=== PATIENT | female | born 2005 | race Caucasian/White ===

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

== ENCOUNTER 2023-08-08 19:35 | Emergency (ER) | payer BC ==
[~2023-08-08] VITALS: Ht 167.6 cm; Wt 70.3 kg
[~2023-08-08 19:35] MED LIST changes: +BENZ100A PO
[2023-08-08 19:43] VITALS: BP 143/97
[2023-08-08] MEDS ORDERED: ONDA4ODT MM (22:38)
== END 2023-08-08 22:15 | disposition home or self-care (01) ==
LOC: ER 19:35
DX: S06.0X0A Concussion without loss of consciousness, initial encounter (principal); W20.8XXA Other cause of strike by thrown, projected or falling object, initial encounter; Y92.009 Unspecified place in unspecified non-institutional (private) residence as the place of occurrence of the external cause
CPT/HCPCS: 99283; A9270

== ENCOUNTER 2023-11-18 04:13 | Observation (INO) | payer BC ==
[~2023-11-18] VITALS: Ht 170.2 cm; Wt 63.5 kg
[~2023-11-18 04:13] MED LIST changes: +ONDA4ODT MM
[2023-11-18 05:02] LABS: BASOPHILS ABSOLUTE AUTO 0.06 K/mm3 (0.00-0.23); BASOPHILS PERCENT AUTO 1 % (0-2); EOSINOPHILS PERCENT AUTO 6 % (0-6); Hematocrit 39.3 % (33.0-51.0); Hemoglobin 13.4 g/dL (11.5-16.0); IMMATURE GRAN ABSOLUTE AUTO 0.02 K/mm3 (0.00-0.10); IMMATURE GRAN PERCENT AUTO 0 % (0-1); LYMPHOCYTES PERCENT AUTO 36 % (21-46); MONOCYTES ABSOLUTE AUTO 0.56 K/mm3 (0.16-1.47); MONOCYTES PERCENT AUTO 8 % (4-13); Mean Corpuscular HGB 31.2 pg (26.0-34.0); Mean Corpuscular HGB Conc 34.1 g/dL (31.5-36.5); Mean Corpuscular Volume 92 fL (80-100); Mean Platelet Volume 9.3 fL (9.1-12.4); NEUTROPHILS ABSOLUTE AUTO 3.33 K/mm3 (1.96-9.15); NEUTROPHILS PERCENT AUTO 49 % (41-73); Platelet Count 398 K/mm3 (150-400); RDW Coefficient Variation 11.6 % (11.7-14.2); RDW Standard Deviation 39.1 fL (35.1-46.3); Red Blood Cell Count 4.29 M/mm3 (3.80-5.20); White Blood Cell Count 6.77 K/mm3 (4.00-11.30)
[2023-11-18 05:30] LABS: Ethanol (Alcohol), Blood, Med 139 mg/dL; Salicylate <1.7 mg/dL (2.8-20.0)
[2023-11-18 05:33] LABS: Alanine Aminotransfer (ALT/SGP 17 U/L (12-78); Alk Phos 62 U/L (50-136); Anion Gap 6 mmol/L (6-16); Aspartate Aminotrans (AST/SGOT 13 U/L (12-37); Bilirubin, Total 0.2 mg/dL (0.1-1.0); Blood Urea Nitrogen 6 mg/dL (8-24); Bun/Creatinine Ratio 9.9 (12.0-20.0); CO2, Blood 26 mmol/L (21-32); Calcium, Blood 8.8 mg/dL (8.5-10.1); Chloride, Blood 110 mmol/L (98-108); Globulin, Blood 4.2 g/dL (2.2-4.0); Glomerular Filtration Rate 132 (60-); Glucose, Blood 106 mg/dL (70-99); Potassium, Blood 3.9 mmol/L (3.5-5.5); Sodium, Blood 142 mmol/L (136-145); Total Protein, Blood 8.2 g/dL (6.4-8.2)
[2023-11-18 05:34] LABS: Acetaminophen, Random <2.0 ug/mL (10.0-30.0)
[2023-11-18 05:57] LABS: U Amphetamine Screen Not Detected; U Barbituate Screen Not Detected; U Benzodiazapine Screen Not Detected; U Buprenorphine Screen Not Detected; U Cannabinoids Screen Not Detected; U Cocaine Screen Not Detected; U Methadone Screen Not Detected; U Methamphetamine Screen Not Detected; U Opiates Screen Not Detected; U Oxycodone Screen Not Detected; U Phencyclidine Screen Not Detected
[2023-11-18 10:50] VITALS: BP 117/73
== END 2023-11-18 14:00 | disposition home or self-care (01) ==
LOC: ER 04:13 → EOR 04:14
PROVIDERS: ADMIT Emergency Medicine
DX: F43.21 Adjustment disorder with depressed mood (principal); F10.129 Alcohol abuse with intoxication, unspecified; Y90.6 Blood alcohol level of 120-199 mg/100 ml
CPT/HCPCS: 12002; 36415; 80053; 81025; 85025; 99285-25; A9270; G0378; G0480

== ENCOUNTER → 2024-10-12 | Outpatient (CLI) | payer BC, OTHER ==
[2024-10-12 13:03] LABS: BASOPHILS ABSOLUTE AUTO 0.05 K/mm3 (0.00-0.23); BASOPHILS PERCENT AUTO 1 % (0-2); EOSINOPHILS ABSOLUTE AUTO 0.24 K/mm3 (0.00-0.68); EOSINOPHILS PERCENT AUTO 3 % (0-6); Hemoglobin 12.9 g/dL (11.5-16.0); IMMATURE GRAN ABSOLUTE AUTO 0.04 K/mm3 (0.00-0.10); IMMATURE GRAN PERCENT AUTO 0 % (0-1); LYMPHOCYTES ABSOLUTE AUTO 1.72 K/mm3 (0.84-5.20); LYMPHOCYTES PERCENT AUTO 19 % (21-46); MONOCYTES ABSOLUTE AUTO 0.59 K/mm3 (0.16-1.47); MONOCYTES PERCENT AUTO 7 % (4-13); Mean Corpuscular HGB 31.8 pg (26.0-34.0); Mean Corpuscular HGB Conc 33.1 g/dL (31.5-36.5); Mean Corpuscular Volume 96 fL (80-100); Mean Platelet Volume 9.2 fL (9.1-12.4); NEUTROPHILS ABSOLUTE AUTO 6.41 K/mm3 (1.96-9.15); NEUTROPHILS PERCENT AUTO 71 % (41-73); Platelet Count 399 K/mm3 (150-400); RDW Coefficient Variation 12.2 % (11.7-14.2); RDW Standard Deviation 43.4 fL (35.1-46.3); Red Blood Cell Count 4.06 M/mm3 (3.80-5.20); White Blood Cell Count 9.05 K/mm3 (4.00-11.30)
[2024-10-12 13:22] LABS: Albumin, Blood 3.7 g/dL (3.4-5.0); Albumin/Globulin Ratio 0.8 (0.8-1.8); Bilirubin, Total 0.3 mg/dL (0.1-1.0); Calcium, Blood 8.6 mg/dL (8.5-10.1); Creatinine, Blood 0.84 mg/dL (0.40-1.00); Globulin, Blood 4.4 g/dL (2.2-4.0); Potassium, Blood 4.2 mmol/L (3.5-5.5); Thyroid Stimulating Hormone 0.522 uIU/mL (0.360-4.800); Total Protein, Blood 8.1 g/dL (6.4-8.2)
== END | disposition home or self-care (01) ==
LOC: LAB 12:58 → LAB SHORT 12:58
PROVIDERS: Chiropractor
DX: R55 Syncope and collapse (principal); R53.83 Other fatigue
CPT/HCPCS: 80053; 84443; 84484; 85025; 85379

== ENCOUNTER 2024-12-14 02:10 | Observation (INO) | payer BC, OTHER ==
[~2024-12-14] VITALS: Ht 172.7 cm; Wt 81.7 kg
[2024-12-14 02:29] VITALS: BP 131/77
[2024-12-14] MEDS ORDERED: ETONOGESTREL-E1 EAC1 VG (02:34)
[2024-12-14 02:56] LABS: BASOPHILS ABSOLUTE AUTO 0.06 K/mm3 (0.00-0.23); BASOPHILS PERCENT AUTO 1 % (0-2); EOSINOPHILS ABSOLUTE AUTO 0.37 K/mm3 (0.00-0.68); EOSINOPHILS PERCENT AUTO 6 % (0-6); Hematocrit 40.4 % (33.0-51.0); Hemoglobin 13.8 g/dL (11.5-16.0); IMMATURE GRAN ABSOLUTE AUTO 0.01 K/mm3 (0.00-0.10); IMMATURE GRAN PERCENT AUTO 0 % (0-1); LYMPHOCYTES ABSOLUTE AUTO 2.78 K/mm3 (0.84-5.20); LYMPHOCYTES PERCENT AUTO 46 % (21-46); MONOCYTES ABSOLUTE AUTO 0.39 K/mm3 (0.16-1.47); MONOCYTES PERCENT AUTO 7 % (4-13); Mean Corpuscular HGB 31.6 pg (26.0-34.0); Mean Corpuscular HGB Conc 34.2 g/dL (31.5-36.5); Mean Corpuscular Volume 92 fL (80-100); Mean Platelet Volume 9.3 fL (9.1-12.4); NEUTROPHILS PERCENT AUTO 40 % (41-73); Platelet Count 415 K/mm3 (150-400); RDW Coefficient Variation 11.8 % (11.7-14.2); RDW Standard Deviation 40.5 fL (35.1-46.3); Red Blood Cell Count 4.37 M/mm3 (3.80-5.20); White Blood Cell Count 6.01 K/mm3 (4.00-11.30)
[2024-12-14 02:57] LABS: Source, Urine Clean Catch
[2024-12-14 03:00] LABS: Bilirubin, Urine Neg (Neg); Blood, Urine Neg (Neg); Glucose Qualitative, Urine Neg (Neg); Ketones, Urine Neg (Neg); Leukocyte Esterase, Urine Neg (Neg); Nitrite, Urine Neg (Neg); Protein, Urine Neg (Neg); Urobilinogen, Urine NORM (Normal); pH, Urine 6.5 (5.0-8.0)
[2024-12-14 03:17] LABS: Ethanol (Alcohol), Blood, Med 226 mg/dL; Salicylate <1.7 mg/dL (2.8-20.0)
[2024-12-14 03:22] LABS: Appearance, Urine Clear (Clear); Color, Urine Pale Yellow (P-Yellow); U Amphetamine Screen Not Detected; U Barbituate Screen Not Detected; U Benzodiazapine Screen Not Detected; U Buprenorphine Screen Not Detected; U Cannabinoids Screen Not Detected; U Cocaine Screen Not Detected; U Methadone Screen Not Detected; U Methamphetamine Screen Not Detected; U Opiates Screen Not Detected; U Oxycodone Screen Not Detected; U Phencyclidine Screen Not Detected
[2024-12-14 03:29] LABS: Acetaminophen, Random <2.0 ug/mL (10.0-30.0); Alanine Aminotransfer (ALT/SGP 25 U/L (12-78); Albumin, Blood 4.2 g/dL (3.4-5.0); Alk Phos 67 U/L (50-136); Anion Gap 13 mmol/L (3-11); Aspartate Aminotrans (AST/SGOT 14 U/L (12-37); Bilirubin, Total 0.1 mg/dL (0.1-1.0); Blood Urea Nitrogen 8 mg/dL (8-24); Bun/Creatinine Ratio 13.9 (12.0-20.0); CO2, Blood 22 mmol/L (21-32); Calcium, Blood 9.4 mg/dL (8.5-10.1); Chloride, Blood 114 mmol/L (98-108); Creatinine, Blood 0.58 mg/dL (0.40-1.00); Globulin, Blood 4.3 g/dL (2.2-4.0); Glomerular Filtration Rate 132 (60-); Glucose, Blood 87 mg/dL (70-99); Potassium, Blood 3.7 mmol/L (3.5-5.5); Sodium, Blood 145 mmol/L (136-145); Total Protein, Blood 8.5 g/dL (6.4-8.2)
[2024-12-14] MEDS ORDERED: Diphth,Pertuss(Acell),Tet Vac 0.5 ML VIAL IM ONE ×2 (05:10→08:10)
== END 2024-12-14 08:37 | disposition home or self-care (01) ==
LOC: ER 02:10 → EOR 02:11
PROVIDERS: ADMIT Emergency Medicine
DX: R45.851 Suicidal ideations (principal); F10.129 Alcohol abuse with intoxication, unspecified; Z91.018 Allergy to other foods; Z91.030 Bee allergy status; Z91.038 Other insect allergy status
CPT/HCPCS: 80053; 80320; 81003; 81025; 85025; 90715; 99285; G0378; G0480